=== PATIENT | female | born 1940 | race Caucasian/White ===

== ENCOUNTER 2017-08-04 15:58 | Inpatient (IN) | payer MEDICARE, OTHER ==
[~2017-08-04] VITALS: Ht 160 cm; Wt 65.0 kg
[~2017-08-04 15:58] MED LIST: ALBU17I INH; LEVA500T PO
[2017-08-04 16:09] VITALS: BP 153/63; PULSE 60; RESP 17; TEMP 97.7; O2SAT 88
[2017-08-04 16:13] VITALS: O2SAT 97
[2017-08-04] MEDS ORDERED: ONDANSETRON HCL 4 MG/2 ML VIAL IVP ONE (16:15)
[2017-08-04] MEDS ORDERED: SODIUM CHLORIDE 0.9% FLUSH 10 ML FLUSH IVF PRN (16:15)
--- NOTE | 2017-08-04 16:32 | PD ---
HPI Chief Complaint: Cardiac Complaint Time Seen by Provider: 16:10 Travel History International Travel<30 days: No Contact w/Intl Traveler<30days: No History of Present Illness HPI 77-year-old female presents via EMS for evaluation of dizziness, nausea and vomiting. Symptoms started at 2 PM after she ate food at [employer] shortly thereafter she developed a vertigo sensation, nausea and vomiting. She reports that she has had several episodes of emesis since then. She reports a heaviness in her head. Symptoms are moderate, no aggravating or relieving factors. She denies chest pain, shortness of breath, blurred vision, weakness, facial droop, aphasia, diarrhea or constipation, abdominal pain. She has no other complaints at this time. PFSH Past Medical History Arthritis: Yes Autoimmune Disease: No Cancer: No Cardiovascular Problems: No Chemotherapy: No Diabetes: No Diminished Hearing: No Genitourinary: No Musculoskeletal: Yes (weakness right upper extremity) Psychiatric: No Reproductive: No Radiation Therapy: No Sickle Cell Disease: No Thyroid Disease: No Menopausal: Yes Past Surgical History Eye Surgery: Yes (CATARACTS SURGERY) Neurologic Surgery: Yes (TUMOR RESECTION) Pacemaker: No Social History Alcohol Use: Yes (SOCIALLY) Tobacco Use: No Substance Use: No Allergies-Medications (Allergen,Severity, Reaction): Coded Allergies: No Known Allergies (Verified , 10/01/13) Reported Meds & Prescriptions Reported Meds & Active Scripts Active Reported Acetaminophen Pm Caplet (Acetaminophen/Diphenhydramine) 500 Mg-25 Mg Tablet 1 Tab PO HS Calcium (Oyster Shell) Unknown Strength Tab 1 Tab PO DAILY Iron (Ferrous Sulfate) Unknown Strength Tab 1 Tab PO DAILY Preservision Areds (Multiple Vitamins W/ Minerals) 1 Tab 1 Tab PO DAILY Actonel (Risedronate) 150 Mg Tab 150 Mg PO MONTHLY Celebrex (Celecoxib) 200 Mg Cap 200 Mg PO DAILY Review of Systems Except as stated in HPI: all other systems reviewed are Neg Physical Exam Narrative GENERAL: Well-developed well-nourished female who is vomiting on initial examination. SKIN: Warm and dry. HEAD: Atraumatic. Normocephalic. EYES: Pupils equal and round reactive to light, horizontal nystagmus. No scleral icterus. No injection or drainage. ENT: No nasal bleeding or discharge. Mucous membranes pink and moist. NECK: Trachea midline. No JVD. CARDIOVASCULAR: Regular rate and rhythm. No murmur appreciated. RESPIRATORY: No accessory muscle use. Clear to auscultation. Breath sounds equal bilaterally. GASTROINTESTINAL: Abdomen soft, non-tender, nondistended. Hepatic and splenic margins not palpable. MUSCULOSKELETAL: No obvious deformities. No clubbing. No cyanosis. No edema. NEUROLOGICAL: Awake and alert. No obvious cranial nerve deficits. Motor grossly within normal limits. Normal speech. Horizontal nystagmus noted. Normal finger to nose. Some ataxia with [id number] bilaterally. No upper or lower extremity drift. PSYCHIATRIC: Appropriate mood and affect; insight and judgment normal. Data Data Last Documented VS Vital Signs Date Time Temp Pulse Resp B/P (MAP) Pulse Ox O2 Delivery O2 Flow Rate FiO2 08/04/17 16:13 (93) 97 Nasal Cannula 4.00 08/04/17 16:09 97.7 60 17 Orders Orders Electrocardiogram (08/04/17 16:12) Complete Blood Count With Diff (08/04/17 16:12) Comprehensive Metabolic Panel (08/04/17 16:12) Magnesium (Mg) (08/04/17 16:12) Ckmb (Isoenzyme) Profile (08/04/17 16:12) Troponin I (08/04/17 16:12) Act Partial Throm Time (Ptt) (08/04/17 16:12) Prothrombin Time / Inr (Pt) (08/04/17 16:12) Chest, Single Ap (08/04/17 16:12) Ct Brain W/O Iv Contrast(Rout) (08/04/17 16:12) Ecg Monitoring (08/04/17 16:12) Iv Access Insert/Monitor (08/04/17 16:12) Oximetry (08/04/17 16:12) Ondansetron Inj (Zofran Inj) (08/04/17 16:15) Sodium Chloride 0.9% Flush (Ns Flush) (08/04/17 16:15) Mra Brain W/O Contrast (Cow) (08/04/17 ) Mri Brain W&W/O Contrast (08/04/17 ) Gadodiamide Pf Inj (Omniscan Pf Inj) (08/04/17 17:41) Meclizine (Antivert) (08/04/17 18:15) Consult Neurology (08/04/17 ) Morphine Inj (Morphine Inj) (08/04/17 18:45) (Hub Use Only)Inp Phy Cons/Ref (08/04/17 ) Admit Order (Ed Use Only) (08/04/17 18:41) Labs Laboratory Tests Test 08/04/17 16:20 White Blood Count 5.1 TH/MM3 Red Blood Count 3.99 MIL/MM3 Hemoglobin 13.1 GM/DL Hematocrit 37.5 % Mean Corpuscular Volume 93.9 FL Mean Corpuscular Hemoglobin 32.9 PG Mean Corpuscular Hemoglobin Concent 35.1 % Red Cell Distribution Width 12.9 % Platelet Count 230 TH/MM3 Mean Platelet Volume 8.3 FL Neutrophils (%) (Auto) 47.5 % Lymphocytes (%) (Auto) 41.6 % Monocytes (%) (Auto) 7.9 % Eosinophils (%) (Auto) 2.2 % Basophils (%) (Auto) 0.8 % Neutrophils # (Auto) 2.4 TH/MM3 Lymphocytes # (Auto) 2.1 TH/MM3 Monocytes # (Auto) 0.4 TH/MM3 Eosinophils # (Auto) 0.1 TH/MM3 Basophils # (Auto) 0.0 TH/MM3 CBC Comment DIFF FINAL Differential Comment Prothrombin Time 10.6 SEC Prothromb Time International Ratio 1.0 RATIO Activated Partial Thromboplast Time 24.0 SEC Blood Urea Nitrogen 13 MG/DL Creatinine 0.70 MG/DL Random Glucose 104 MG/DL Total Protein 7.0 GM/DL Albumin 3.6 GM/DL Calcium Level 10.0 MG/DL Magnesium Level 2.0 MG/DL Alkaline Phosphatase 56 U/L Aspartate Amino Transf (AST/SGOT) 10 U/L Alanine Aminotransferase (ALT/SGPT) 15 U/L Total Bilirubin 0.3 MG/DL Sodium Level 139 MEQ/L Potassium Level 3.5 MEQ/L Chloride Level 103 MEQ/L Carbon Dioxide Level 28.7 MEQ/L Anion Gap 7 MEQ/L Estimat Glomerular Filtration Rate 81 ML/MIN Total Creatine Kinase 66 U/L Troponin I LESS THAN 0.02 NG/ML MDM Medical Decision Making Medical Screen Exam Complete: Yes Emergency Medical Condition: Yes Medical Record Reviewed: Yes Differential Diagnosis Cerebellar CVA, peripheral vertigo, intracranial hemorrhage, electrolyte abnormality, arrhythmia, gastroenteritis Narrative Course The patient was placed on ECG monitoring pulse oximetry. A 12-lead EKG was obtained revealing a left bundle branch block. Discussed with my attending, Lab work, CT of the brain MRI, MRA of the brain is been ordered. The patient was given Zofran. IV fluids from EMS are currently running. The patient was given meclizine. Lab work has been reviewed. MRI of the brain reveals: CONCLUSION: 1. Findings suggest a focal subacute infarction involving the left cerebral cortex high along the left cerebral vertex. 2. SWI images demonstrate micro-hemorrhage within the left cortex at the level of the restricted diffusion. I discussed with the on-call neurologist Dr. Blevins who would like the patient to be admitted and he will consult. Discussed with Dr. Colon who is agreeable with admission. Diagnosis Primary Impression: CVA (cerebral vascular accident) Additional Impression: Vertigo Admitting Information Admitting Physician Requests: Admit Vazquez Danielson Aug 04, 2017 16:31
[2017-08-04 16:34] LABS: AUTOMATED NEUTROPHIL # 2.4 TH/MM3 (1.8-7.7); BASOPHIL % 0.8 % (0.0-2.0); EOSINOPHIL # 0.1 TH/MM3 (0-0.4); EOSINOPHIL % 2.2 % (0.0-4.0); HEMATOCRIT 37.5 % (35.0-46.0); HEMOGLOBIN 13.1 GM/DL (11.6-15.3); LYMPH % 41.6 % (9.0-44.0); LYMPHOCYTE # 2.1 TH/MM3 (1.0-4.8); MEAN CELL VOLUME 93.9 FL (80.0-100.0); MEAN CORPUSCULAR HEMOGLOBIN 32.9 PG (27.0-34.0); MEAN CORPUSCULAR HGB CONC 35.1 % (32.0-36.0); MEAN PLATELET VOLUME 8.3 FL (7.0-11.0); MONO % 7.9 % (0.0-8.0); MONOCYTE # 0.4 TH/MM3 (0-0.9); NEUT % 47.5 % (16.0-70.0); PLATELET COUNT 230 TH/MM3 (150-450); RED BLOOD COUNT 3.99 MIL/MM3 (4.00-5.30); RED CELL DISTRIBUTION WIDTH 12.9 % (11.6-17.2); WHITE BLOOD COUNT 5.1 TH/MM3 (4.0-11.0)
[2017-08-04 16:50] LABS: ALBUMIN 3.6 GM/DL (3.4-5.0); AST (GOT) 10 U/L (15-37); BICARBONATE 28.7 MEQ/L (21.0-32.0); BLOOD UREA NITROGEN 13 MG/DL (7-18); CHLORIDE 103 MEQ/L (98-107); GLOMERULAR FILTRATION RATE 81 ML/MIN (>89); GLUCOSE,RANDOM 104 MG/DL (74-106); SODIUM (NA) 139 MEQ/L (136-145)
[2017-08-04 16:52] LABS: PROTHROMBIN TIME - PATIENT 10.6 SEC (9.8-11.6)
[2017-08-04 16:55] LABS: ALKALINE PHOSPHATASE 56 U/L (45-117); ALT (GPT) 15 U/L (10-53); TOTAL BILIRUBIN ADULT 0.3 MG/DL (0.2-1.0); TROPONIN I LESS THAN 0.02 NG/ML (0.02-0.05)
[2017-08-04] MEDS ORDERED: OCUVTAB4 PO (17:03)
[2017-08-04] MEDS ORDERED: ACTO150T PO (17:03)
[2017-08-04] MEDS ORDERED: IRON18TA PO (17:03)
[2017-08-04] MEDS ORDERED: CELE200C PO (17:03)
[2017-08-04] MEDS ORDERED: DIPH25TA31 PO (17:06)
[2017-08-04] MEDS ORDERED: CALC12502 PO (17:06)
--- NOTE | 2017-08-04 17:19 | RADRPT ---
EXAM DATE/TIME: 08/04/2017 16:20 [facility] COMPARISON: CHEST SINGLE AP, October 01, 2013, 8:07. INDICATIONS : Heart palpitations, dizziness, vomtting, and shortness of breath. MEDICAL HISTORY : None. SURGICAL HISTORY : None. ENCOUNTER: Initial ACUITY: 1 day PAIN SCORE: 0/10 LOCATION: Bilateral chest FINDINGS: Patchy linear parenchymal opacities in the left lower lung zone. Cardiomediastinal contours are stabl e. Bony thorax is intact. CONCLUSION: 1. Linear parenchymal opacities in the left lower lung zone, presumably atelectasis/scarring. Jeronimo Martel MD on August 04, 2017 at 17:16 Board Certified Radiologist. This report was verified electronically.
--- NOTE | 2017-08-04 17:27 | RADRPT ---
EXAM DATE/TIME: 08/04/2017 17:05 [facility] COMPARISON: CT BRAIN W/O CONTRAST, January 07, 2013, 6:14. INDICATIONS : History of brain tumor,sudden onset of headache,weakness,dizziness RADIATION DOSE: 35.10 CTDIvol (mGy) MEDICAL HISTORY : Brain tumor SURGICAL HISTORY : Craniotomy. ENCOUNTER: Initial ACUITY: 1 day PAIN SCALE: 5/10 LOCATION: cranial TECHNIQUE: Multiple contiguous axial images were obtained of the head. Using automated exposure control and adj ustment of the mA and/or kV according to patient size, radiation dose was kept as low as reasonably a chievable to obtain optimal diagnostic quality images. DICOM format image data is available electro nically for review and comparison. FINDINGS: Noncontrast axial head CT demonstrates the ventricles to be normal in size and configuration with a n ormal sulcal pattern. No acute intracranial hemorrhage, acute cortical infarction, mass or midline sh ift is seen. Posterior fossa structures are unremarkable. Bone windows are unremarkable. There is previous left frontal craniotomy but no underlying mass is id entified. There is minimal encephalomalacia in the left frontal region. CONCLUSION: 1. No evidence of acute intracranial pathology. No masses are identified. Austin Alcantara MD on August 04, 2017 at 17:24 Board Certified Radiologist. This report was verified electronically.
[2017-08-04] MEDS ORDERED: GADODIAMIDE PF 287 MG/ML 5 ML VIAL (for RAD MRI) IV PUSH ONE (17:41)
--- NOTE | 2017-08-04 17:57 | RADRPT ---
EXAM DATE/TIME: 08/04/2017 17:18 [facility] COMPARISON: MRI BRAIN W & W/O CONTRAST, August 04, 2017, 17:18. INDICATIONS : CVA. MEDICAL HISTORY : Arthritis. SURGICAL HISTORY : Craniotomy. ENCOUNTER: Subsequent ACUITY: 1 day PAIN SCORE: Nonresponsive. LOCATION: cranial Please note a normal MRA of the brain does not entirely exclude the possibility of a small aneurysm, nor the possibility of distal intracranial vessel disease. TECHNIQUE: 3D time of flight MRA was performed. Source images, multiplanar STS MIP, and 3D volume MIP reconstru ctions were reviewed. FINDINGS: There is excellent visualization of the major intracranial arteries out to the second-order branch ve ssels. There is no evidence for aneurysm, vessel truncation or stenosis, and no evidence for vascula r malformation. CONCLUSION: Normal examination. Juan Pablo Madrid MD on August 04, 2017 at 17:53 Board Certified Radiologist. This report was verified electronically.
[2017-08-04] MEDS ORDERED: MECLIZINE HCL 25 MG TAB PO ONE (18:15)
--- NOTE | 2017-08-04 18:15 | RADRPT ---
EXAM DATE/TIME: 08/04/2017 17:18 This report includes an Addendum and supersedes previous reports for this exam. [facility] COMPARISON: CT BRAIN W/O CONTRAST, August 04, 2017, 17:05. INDICATIONS : CVA. CONTRAST: 14 cc Omniscan (gadodiamide) IV MEDICAL HISTORY : Arthritis. SURGICAL HISTORY : Craniotomy. Brain tumor resection. ENCOUNTER: Subsequent ACUITY: 1 day PAIN SCORE: Nonresponsive. LOCATION: cranial TECHNIQUE: Multiplanar, multisequence MRI of the brain was performed both prior to and following the administrat ion of paramagnetic contrast. FINDINGS: CEREBRUM: The ventricles are normal for age. There is bilateral cortical atrophy. No evidence of midline shift, mass lesion. However, the diffusion weighted images demonstrate increased signal high along the left cerebral cortex consisting with an acute to subacute infarct. There is some gyral enhancement in the postcontrast images in this location. The SWI images suggest some microhemorrhage within the cortex. No extraaxial fluid collections are seen. The pituitary gland and suprasellar cistern are normal in configuration. WHITE MATTER: A few high signal spots are seen in the white matter tracts bilaterally characteristic of ischemic de myelination. POSTERIOR FOSSA: The cerebellum and brainstem are intact. The 4th ventricle is midline. The cerebellopontine angle is unremarkable. The cerebellar tonsils are normal in position. DIFFUSION IMAGING: Focal area of increased signal involving the cortex high along the left cerebral vertex. EXTRACRANIAL: The visualized portions of the orbits and paranasal sinuses are unremarkable. POST-CONTRAST: There is some gyral enhancement high along the left cerebral vertex in the region of the area restric andrez diffusion. CONCLUSION: 1. Findings suggest a focal subacute infarction involving the left cerebral cortex high along the lef t cerebral vertex. 2. SWI images demonstrate micro-hemorrhage within the left cortex at the level of the restricted diff usion. Jeremias Ochoa MD on August 04, 2017 at 18:05 Board Certified Radiologist. This report was verified electronically. ADDENDUM: COMPARISON: MRI BRAIN W & W/O CONTRAST, January 18, 2013, 12:22. The case was discussed with the medical service. This patient has had a previous meningioma removed f rom the left posterior parietal cortex. As such, the signal identified on the diffusion restricted im ages likely represents an area of gliosis. The decreased signal in this area on the SWI images repres ents old postoperative change and old hemorrhage as well. The MRI dated 01/18/13 is now available for direct comparison. There is significant interval improvement in the appearance of this area when comp ared to the prior study. Joao Pineda MD on August 06, 2017 at 8:21 Board Certified Radiologist. This report was verified electronically.
[2017-08-04] MEDS ORDERED: DEXTROSE 50% IN WATER 50 ML VIAL(D50) IV PUSH PRN (18:45)
[2017-08-04] MEDS ORDERED: GLUCAGON 1 MG/ML VIAL OTHER PRN (18:45)
[2017-08-04] MEDS ORDERED: MORPHINE SULFATE 2 MG/ML INJ IV PUSH ONE (18:45)
[2017-08-04] MEDS ORDERED: SODIUM CHLORIDE 0.9% FLUSH 10 ML FLUSH IV FLUSH PRN (18:45)
[2017-08-04 20:01] VITALS: BP 155/69
[2017-08-04 20:38] VITALS: BP 127/60; PULSE 57; RESP 16; TEMP 97.8; O2SAT 97
--- NOTE | 2017-08-04 20:46 | HHI.HP ---
[facility] Unknown Admission Diagnosis CVA, vertigo Diagnoses: Travel History International Travel<30 Days: No Contact w/Intl Traveler <30 Da: No History of Present Illness 77-year-old female with a past medical history significant for osteoarthritis and osteoporosis presents the emergency department for evaluation of dizziness. The patient reports she just finished eating lunch when she stood up and was extremely dizzy. She sat back down and was overcome with nausea/vomiting and accompanying diaphoresis. She reports that she had a severe headache that persists. She denies any chest pain or shortness of breath. Denies any weakness or lateralizing signs/symptoms. Denies any dysarthria or word finding difficulties. Review of Systems Except as stated in HPI: all other systems reviewed are Neg Past Family Social History Past Medical History Osteoarthritis Osteoporosis History of benign brain tumor Past Surgical History Brain tumor removal Tonsillectomy Reported Medications Reported Meds & Active Scripts Active Reported Acetaminophen Pm Caplet (Acetaminophen/Diphenhydramine) 500 Mg-25 Mg Tablet 1 Tab PO HS Calcium (Oyster Shell) Unknown Strength Tab 1 Tab PO DAILY Iron (Ferrous Sulfate) Unknown Strength Tab 1 Tab PO DAILY Preservision Areds (Multiple Vitamins W/ Minerals) 1 Tab 1 Tab PO DAILY Actonel (Risedronate) 150 Mg Tab 150 Mg PO MONTHLY Celebrex (Celecoxib) 200 Mg Cap 200 Mg PO DAILY Allergies: Coded Allergies: No Known Allergies (Verified , 10/01/13) Family History Dad with CAD. Mom with DM. Social History Quit tobacco 30 years ago. Drinks approximately 1 glass of wine daily. Denies illicit drugs. Physical Exam Vital Signs Vital Signs Date Time Temp Pulse Resp B/P (MAP) Pulse Ox O2 Delivery O2 Flow Rate FiO2 08/04/17 20:38 97.8 57 16 127/60 (82) 97 08/04/17 20:01 62 16 155/69 (97) 100 08/04/17 19:59 Nasal Cannula 2.00 08/04/17 16:13 (93) 97 Nasal Cannula 4.00 08/04/17 16:09 97.7 60 17 153/63 (93) 88 Room Air 26/18 16:06 58 15 94 Room Air Physical Exam GENERAL: female lying in bed SKIN: No rashes, ecchymoses or lesions. Cool and dry. HEAD: Atraumatic. Normocephalic. No temporal or scalp tenderness. EYES: Pupils equal round and reactive. Extraocular motions intact. No scleral icterus. No injection or drainage. ENT: Nose without bleeding, purulent drainage or septal hematoma. Throat without erythema, tonsillar hypertrophy or exudate. Uvula midline. Airway patent. NECK: Trachea midline. No JVD or lymphadenopathy. Supple, nontender, no meningeal signs. CARDIOVASCULAR: Regular rate and rhythm without murmurs, gallops, or rubs. RESPIRATORY: Clear to auscultation. Breath sounds equal bilaterally. No wheezes , rales, or rhonchi. GASTROINTESTINAL: Abdomen soft, non-tender, nondistended. No hepato-splenomegaly , or palpable masses. No guarding. MUSCULOSKELETAL: Extremities without clubbing, cyanosis, or edema. No joint tenderness, effusion, or edema noted. No calf tenderness. Negative Homans sign bilaterally. NEUROLOGICAL: Awake and alert. Cranial nerves II through XII intact. Motor and sensory within normal limits. Five out of 5 muscle strength in all muscle groups. Normal speech. Laboratory Laboratory Tests Test 08/04/17 16:20 White Blood Count 5.1 Red Blood Count 3.99 Hemoglobin 13.1 Hematocrit 37.5 Mean Corpuscular Volume 93.9 Mean Corpuscular Hemoglobin 32.9 Mean Corpuscular Hemoglobin Concent 35.1 Red Cell Distribution Width 12.9 Platelet Count 230 Mean Platelet Volume 8.3 Neutrophils (%) (Auto) 47.5 Lymphocytes (%) (Auto) 41.6 Monocytes (%) (Auto) 7.9 Eosinophils (%) (Auto) 2.2 Basophils (%) (Auto) 0.8 Neutrophils # (Auto) 2.4 Lymphocytes # (Auto) 2.1 Monocytes # (Auto) 0.4 Eosinophils # (Auto) 0.1 Basophils # (Auto) 0.0 CBC Comment DIFF FINAL Differential Comment Prothrombin Time 10.6 Prothromb Time International Ratio 1.0 Activated Partial Thromboplast Time 24.0 Blood Urea Nitrogen 13 Creatinine 0.70 Random Glucose 104 Total Protein 7.0 Albumin 3.6 Calcium Level 10.0 Magnesium Level 2.0 Alkaline Phosphatase 56 Aspartate Amino Transf (AST/SGOT) 10 Alanine Aminotransferase (ALT/SGPT) 15 Total Bilirubin 0.3 Sodium Level 139 Potassium Level 3.5 Chloride Level 103 Carbon Dioxide Level 28.7 Anion Gap 7 Estimat Glomerular Filtration Rate 81 Total Creatine Kinase 66 Troponin I LESS THAN 0.02 Result Diagram: 08/04/17 1620 08/04/17 1620 Caprini VTE Risk Assessment Caprini VTE Risk Assessment: Mod/High Risk (score >= 2) Caprini Risk Assessment Model Point Value = 1 Point Value = 2 Point Value = 3 Point Value = 5 Age 41-60 Minor surgery BMI > 25 kg/m2 Swollen legs Varicose veins or History of unexplained or recurrent spontaneous Oral contraceptives or hormone replacement Sepsis (< 1 month) Serious lung disease, including pneumonia (< 1 month) Abnormal pulmonary function Acute myocardial infarction Congestive heart failure (< 1 month) History of inflammatory bowel disease Medical patient at bed rest Age 61-74 Arthroscopic surgery Major open surgery (> 45 min) Laparoscopic surgery (> 45 min) Malignancy Confined to bed (> 72 hours) Immobilizing plaster cast Central venous access Age >= 75 History of VTE Family history of VTE Factor V Leiden Prothrombin [id number] Lupus anticoagulant Anticardiolipin antibodies Elevated serum homocysteine Heparin-induced thrombocytopenia Other congenital or acquired thrombophilia Stroke (< 1 month) Elective arthroplasty Hip, pelvis, or leg fracture Acute spinal cord injury (< 1 month) Prophylaxis Regimen Total Risk Factor Score Risk Level Prophylaxis Regimen 0-1 Low Early ambulation 2 Moderate Order ONE of the following: *Sequential Compression Device (SCD) *Heparin 5000 units SQ BID 3-4 Higher Order ONE of the following medications: *Heparin 5000 units SQ TID *Enoxaparin/Lovenox 40 mg SQ daily (WT < 150 kg, CrCl > 30 mL/min) *Enoxaparin/Lovenox 30 mg SQ daily (WT < 150 kg, CrCl > 10-29 mL/min) *Enoxaparin/Lovenox 30 mg SQ BID (WT < 150 kg, CrCl > 30 mL/min) AND/OR *Sequential Compression Device (SCD) 5 or more Highest Order ONE of the following medications: *Heparin 5000 units SQ TID (Preferred with Epidurals) *Enoxaparin/Lovenox 40 mg SQ daily (WT < 150 kg, CrCl > 30 mL/min) *Enoxaparin/Lovenox 30 mg SQ daily (WT < 150 kg, CrCl > 10-29 mL/min) *Enoxaparin/Lovenox 30 mg SQ BID (WT < 150 kg, CrCl > 30 mL/min) AND *Sequential Compression Device (SCD) Assessment and Plan Assessment and Plan Assessment/plan: 1. CVA Brain MRI significant for a focal subacute infarction involving the left cerebral cortex with microhemorrhage Head MRA within normal limits Neurology consulted, appreciate recommendations Bed rest, swallow eval, SCDs, director independent for signs of evolving hemorrhage 2. Osteoarthritis Holding home Celebrex FEN Nothing by mouth NS at 70 cc/hour Electrolytes: Monitor and replete prn SCDs Physician Certification 2 Midnight Certification Type: Admission for Inpatient Services Order for Inpatient Services The services are ordered in accordance with Medicare regulations or non- Medicare payer requirements, as applicable. In the case of services not specified as inpatient-only, they are appropriately provided as inpatient services in accordance with the 2-midnight benchmark. Estimated LOS (days): 2 2 days is the estimated time the patient will need to remain in the hospital, assuming treatment plan goals are met and no additional complications. Post-Hospital Plan: Not yet determined Lily Iraheta MD Aug 04, 2017 20:46
[2017-08-04] MEDS ORDERED: ACETAMINOPHEN 325 MG TAB PO PRN (21:15)
[2017-08-04] MEDS ORDERED: MORPHINE SULFATE 2 MG/ML INJ IV PUSH PRN (21:15)
[2017-08-04] MEDS: SODIUM CHLORIDE 0.9% FLUSH 10 ML FLUSH IV FLUSH SCH (22:09)
[2017-08-04] MEDS: SODIUM CHLOR 0.9% 1000 ML INJ 1,000 ML IV SCH (22:09)
[2017-08-04 22:38] LABS: HEMOGLOBIN A1C 5.8 % (4.3-6.0)
[2017-08-04 23:58] VITALS: PULSE 66
[2017-08-05] VITALS (9 sets, daily range): BP systolic 99–129; BP diastolic 54–61; PULSE 53–69; RESP 18–20; TEMP 98–98.4; O2SAT 92–97
[2017-08-05 06:16] LABS: CHOLESTEROL/ HDL RATIO 2.34 RATIO; HDL CHOLESTEROL 87.1 MG/DL (40.0-60.0)
[2017-08-05] MEDS: SODIUM CHLORIDE 0.9% FLUSH 10 ML FLUSH IV FLUSH SCH ×2 (09:00→21:00)
--- NOTE | 2017-08-05 09:32 | MB ---
cc: FELECIA PEARSON M.D. DATE OF CONSULTATION: 08/05/2017 HISTORY OF PRESENT ILLNESS A 77-year-old right-handed woman, very healthy, except she had a left meningioma [place] [address] Javed and she did have a scan about 6 months after that at [facility] which we will try to obtain. Nevertheless, she was at lunch yesterday and stood up after eating and had sudden onset of vertigo with nausea, vomiting, lasted about 10 minutes. She had a headache afterwards in the back of her head and came into the hospital. She never had vertigo before. No asymmetrical weakness or numbness or double vision associated with it, nor fever. She has not been sick. REVIEW OF SYSTEMS Denies any hypertension, diabetes, hypercholesterolemia, LA, CABG, cardiac arrhythmia, stent, angioplasty, atrial fibrillation, Coumadin, renal, hepatic or pulmonary disease, thyroid disease, lupus, ulcer, cancer, seizure or stroke. SOCIAL HISTORY Nonsmoker. Has one drink a day. Lives with herself. FAMILY HISTORY Cancer in her sister. Negative for seizure or stroke. MEDICATION She does not take an aspirin a day. She takes: 1. Acetaminophen. 2. Calcium. 3. Iron. 4. Actonel. 5. Celebrex. ALLERGIES NO KNOWN DRUG ALLERGIES. PAST MEDICAL HISTORY Just some chronic back pain from arthritis. PHYSICAL EXAMINATION VITAL SIGNS: Afebrile, 83, 18, 113/56. NECK: There were no carotid or vertebral bruits. HEART: Regular rhythm. I do not detect a murmur. NEURO: Pupils are equal. Visual jolley are full. Extraocular movements intact without nystagmus. Face symmetric with normal sensation. Tongue was midline. There is no drift. She had normal strength in upper and lower extremities bilaterally. DTRs are trace throughout. Toes are downgoing bilaterally. Pinprick is intact throughout. She is not ataxic on [id number] or toe to finger. Gait is steady. Speech is fluent. She is not aphasic. LABORATORY DATA CBC is normal. Basic metabolic profile was normal. Calcium normal. LFTs, CPK, troponin normal. LDL cholesterol was 107. Coags normal. MRI of the brain shows what probably is old changes from an area of the postsurgical region on the left parietal and no brain diffusion abnormalities noted. The mastoids were clear. No posterior circulation abnormalities were noted. Preop there was a 4.6 cm left parietal meningioma containing calcification, so it was rather large. EKG shows sinus rhythm. MRA of the [id number] was normal. IMPRESSION I think this vertigo, probably more of a peripheral vestibulopathy, although a TIA is a consideration and I would start her on a baby aspirin. In addition, we will check an MRA of the neck to make sure there is no vertebrobasilar stenosis, and an echo and a Holter. If the echo looks good and the MRA looks fine, she could be considered for discharge. A statin could be considered with the elevated LDL. Will review the films from [facility] that were postop from 2012. Will need to have those pulled up as they need to be reconstituted in order to compare the current scan, but I do not think this is a new left parietal infarct, I think these left parietal changes are probably chronic and not related to her current symptoms. MD ONEAL Knox/SHAHRAM /8:37 AM /8:59 AM
[2017-08-05] MEDS: ASPIRIN EC 81 MG TABEC PO SCH (12:34)
[2017-08-05] MEDS: SODIUM CHLOR 0.9% 1000 ML INJ 1,000 ML IV SCH (12:35)
--- NOTE | 2017-08-05 12:58 | EKG ---
Date Performed: 08/04/2017 Time Performed: 16:03:14 PTAGE: 77 years EKG: Sinus rhythm MARKED LEFT AXIS DEVIATION LEFT BUNDLE BRANCH BLOCK ABNORMAL ECG INTERPRETATION BASED ON A DEFAULT A GE OF 40 YEARS NO PREVIOUS TRACING DOCTOR: Sung Moore Interpretating Date/Time 08/05/2017 12:51:05
--- NOTE | 2017-08-05 13:06 | RADRPT ---
EXAM DATE/TIME: 08/05/2017 12:08 [place] COMPARISON: No previous studies available for comparison. INDICATIONS : Stenosis. Dizziness. CVA. CONTRAST: 20 cc Omniscan (gadodiamide) IV MEDICAL HISTORY : Arthritis. SURGICAL HISTORY : Craniotomy. ENCOUNTER: Subsequent ACUITY: 2 day PAIN SCORE: 0/10 LOCATION: neck. Percent stenosis is calculated using the diameter of the stenotic region over the diameter of the nor mal distal internal carotid artery. TECHNIQUE: Bolus infused MRA of the extracranial circulation was performed using a neurovascular coil. Post pro cessing was performed including rotating subvolume maximum intensity projections of each carotid dee ry, rotating full volume maximum intensity projections of both carotid arteries, sagittal and coronal sliding thin slab reformations of each carotid artery, and left oblique sliding thin slab reformatio n through the aortic arch to include the origin of the arch branch vessels. FINDINGS: AORTIC ARCH: There is a three vessel origin of the great vessels from the aorta. No evidence of ostial narrowing. RIGHT CAROTID: The common carotid artery is intact. The carotid bulb has a normal configuration without ulceration or narrowing. The internal carotid artery lumen is smooth without stenosis. Fairly pronounced tortuo sity noted. The external carotid artery is intact. LEFT CAROTID: The common carotid artery is intact. The carotid bulb has a normal configuration without ulceration or narrowing. The internal carotid artery lumen is smooth without stenosis. Fairly prominent tortuos ity noted. The external carotid artery is intact. VERTEBRALS: The vertebral arteries have a symmetric diameter. No stenotic lesions are seen. CONCLUSION: No evidence of carotid stenosis Juan Pablo Madrid MD on August 05, 2017 at 13:02 Board Certified Radiologist. This report was verified electronically.
[2017-08-05] MEDS ORDERED: GADODIAMIDE PF 287 MG/ML 20 ML VIAL (for RAD MRI) IVCONTRAST ONE (13:21)
--- NOTE | 2017-08-05 17:47 | HHI.PR ---
Subjective Remarks Follow up for acute stroke, vertigo. Patient is currently doing well. No further vertigo symptoms. No CP, SOB, fever, chills. Objective Vitals Vital Signs Date Time Temp Pulse Resp B/P (MAP) Pulse Ox O2 Delivery O2 Flow Rate FiO2 08/05/17 16:25 98.3 58 18 129/61 (83) 92 08/05/17 16:03 98.4 58 20 115/58 (77) 94 08/05/17 11:23 98.1 69 20 99/54 (69) 93 08/05/17 09:00 58 08/05/17 07:30 97 Nasal Cannula 2.00 08/05/17 07:21 98.4 53 18 113/56 (75) 96 08/05/17 06:12 Nasal Cannula 2.00 08/05/17 03:35 60 08/05/17 02:47 98.0 61 18 106/55 (72) 95 08/04/17 23:58 66 08/04/17 23:19 18 08/04/17 20:38 97.8 57 16 127/60 (82) 97 08/04/17 20:01 62 16 155/69 (97) 100 08/04/17 19:59 Nasal Cannula 2.00 I/O 08/04/17 08/04/17 08/04/17 08/05/17 08/05/17 08/05/17 07:00 15:00 23:00 07:00 15:00 23:00 Intake Total 240 ml Balance 240 ml Intake Oral 240 ml # Voids 1 2 Result Diagram: 08/04/17 1620 08/04/17 1620 Imaging Last Impressions Neck Magnetic Resonance Angiography 08/05/17 0844 Signed Impressions: Service Date/Time: Saturday, August 05, 2017 12:08 - CONCLUSION: No evidence of carotid stenosis Juan Pablo Madrid MD Head CT 08/04/17 161 Signed Impressions: Service Date/Time: Friday, August 04, 2017 17:05 - CONCLUSION: 1. No evidence of acute intracranial pathology. No masses are identified. Austin Alcantara MD Chest X-Ray 08/04/17 1612 Signed Impressions: Service Date/Time: Friday, August 04, 2017 16:20 - CONCLUSION: 1. Linear parenchymal opacities in the left lower lung zone, presumably atelectasis/scarring. Jeronimo Martel MD Head Magnetic Resonance Angiography 08/04/17 0000 Signed Impressions: Service Date/Time: Friday, August 04, 2017 17:18 - CONCLUSION: Normal examination. Juan Pablo Madrid MD Brain MRI 08/04/17 0000 Signed Impressions: Service Date/Time: Friday, August 04, 2017 17:18 - CONCLUSION: 1. Findings suggest a focal subacute infarction involving the left cerebral cortex high along the left cerebral vertex. 2. SWI images demonstrate micro-hemorrhage within the left cortex at the level of the restricted diffusion. Jeremias Ochoa MD Objective Remarks GENERAL: AOX3, NAD. SKIN: Warm and dry. HEAD: Normocephalic. EYES: No scleral icterus. No injection or drainage. NECK: Supple, trachea midline. No JVD or lymphadenopathy. CARDIOVASCULAR: Regular rate and rhythm without murmurs, gallops, or rubs. RESPIRATORY: Breath sounds equal bilaterally. No accessory muscle use. GASTROINTESTINAL: Abdomen soft, non-tender, nondistended. MUSCULOSKELETAL: No cyanosis, or edema. BACK: Nontender without obvious deformity. No CVA tenderness. Procedures None. A/P Problem List: (1) CVA (cerebral vascular accident) ICD Code: I63.9 - Cerebral infarction, unspecified Status: Acute (2) Vertigo ICD Code: R42 - Dizziness and giddiness Status: Acute Assessment and Plan Ms. Maurice is a 77-year-old female with a past medical history significant for osteoarthritis and osteoporosis presents the emergency department for evaluation of dizziness. She did not have any focal weakness, dysarthria. - Subacute left cerebral infarction - Left cortex micro-hemorrhage - Patient is currently on Aspirin. Neurology following - May benefit from Plavix instead of Aspirin. - Will get PT/OT eval. - Dyslipidemia - Will start patient on Lipitor 40mg QHS. - Vertigo - no further symptoms. Received one dose of Meclizine on 08/04/2017. Full code. SCDs. Telemetry. Discharge plan: Probable discharge on 08/06/[address]. Macarena Lane DO Aug 05, 2017 17:47
--- NOTE | 2017-08-05 19:00 | ECHRPT ---
Indication: CONCLUSIONS The left ventricular systolic function is low normal with an estimated ejection fraction in the rang e of 50%. Mild concentric left ventricular hypertrophy. Doppler parameters are consistent with impaired left ventricular relaxtion (grade 1 diastolic dysfun ction). Mild aortic valve regurgitation. There is mild tricuspid valve regurgitation. Mild pulmonary valve regurgitation. BP: 113 / 65 HR: 75 Rhythm: MEASUREMENTS (Male / Female) Normal Values Technical Quality: 2D ECHO LV Diastolic Diameter PLAX 4.0 cm 4.2 - 5.9 / 3.9 - 5.3 cm LV Systolic Diameter PLAX 3.0 cm IVS Diastolic Thickness 1.2 cm 0.6 - 1.0 / 0.6 - 0.9 cm LVPW Diastolic Thickness 1.2 cm 0.6 - 1.0 / 0.6 - 0.9 cm LV Relative Wall Thickness 0.6 RV Internal Dim ED PLAX 3.3 cm LVOT Diameter 2.1 cm LA Systolic Diameter LX 3.4 cm 3.0 - 4.0 / 2.7 - 3.8 cm LV Ejection Fraction MOD 4C 50.0 % LV Cardiac Index MOD 4C 2610.8 cm/minm LV Ejection Fraction 4C AL 52.7 % LV Cardiac Index 4C AL 2883.2 cm/minm M-MODE Aortic Root Diameter MM 3.5 cm LA Systolic Diameter MM 3.9 cm LA Ao Ratio MM 1.1 AV Cusp Separation MM 2.0 cm DOPPLER AV Peak Velocity 159.0 cm/s AV Peak Gradient 10.1 mmHg AI Peak Velocity 391.0 cm/s AI Peak Gradient 61.2 mmHg AI Pressure Half Time 431.5 ms LVOT Peak Velocity 104.0 cm/s LVOT Peak Gradient 4.3 mmHg AV Area Cont Eq pk 2.3 cm MV Area PHT 2.5 cm Mitral E Point Velocity 96.3 cm/s Mitral A Point Velocity 128.0 cm/s Mitral E to A Ratio 0.8 LV E' Lateral Velocity 7.4 cm/s Mitral E to LV E' Lateral Ratio 13.0 LV E' Septal Velocity 7.0 cm/s Mitral E to LV E' Septal Ratio 13.7 TR Peak Velocity 290.0 cm/s TR Peak Gradient 33.6 mmHg Right Atrial Pressure 10.0 mmHg Pulmonary Artery Systolic Pressu 43.6 mmHg Right Ventricular Systolic Press 43.6 mmHg PV Peak Velocity 89.6 cm/s PV Peak Gradient 3.2 mmHg FINDINGS LEFT VENTRICLE Normal left ventricular size. Mild concentric left ventricular hypertrophy. Nonobstructive prominent basal hypertrophy is present consistent with sigmoid septum. The left ventricular systolic function is low normal with an estimated ejection fraction in the rang e of 50%. Doppler parameters are consistent with impaired left ventricular relaxtion (grade 1 diastolic dysfun ction). RIGHT VENTRICLE Normal right ventricular size and systolic function. LEFT ATRIUM The left atrial size is mildly dilated. RIGHT ATRIUM The right atrial size is normal. ATRIAL SEPTUM Normal atrial septal thickness. AORTA The aortic root and proximal ascending aorta are normal in size on limited imaging. MITRAL VALVE Structurally normal mitral valve. No mitral valve stenosis or regurgitation. AORTIC VALVE No aortic valve stenosis. Mild aortic valve regurgitation. TRICUSPID VALVE Structurally normal tricuspid valve. There is mild tricuspid valve regurgitation. There is estimated mild pulmonary hypertension present (44 mmHg). PULMONARY VALVE The pulmonary valve is not well visualized. Mild pulmonary valve regurgitation. VESSELS The inferior vena cava is normal in size. PERICARDIUM No pericardial effusion. Dave Swain DO (Electronically Signed) Final Date:05 August 2017 18:58
[2017-08-05] MEDS ORDERED: ATORVASTATIN 40 MG TAB PO SCH (21:00)
[2017-08-05 23:47] LABS: BILIRUBIN, URINE NEG (NEG); BLOOD, URINE NEG (NEG); GLUCOSE,URINE NEG (NEG); KETONE, URINE NEG (NEG); MUCUS URINE FEW /lpf (OCC); NITRITE,URINE NEG (NEG); PH, URINE 5.5 (5.0-8.5); URINE COLOR LIGHT-YELLOW (YELLW/STRAW); URINE LEUKOCYTE ESTERASE NEG (NEG)
[2017-08-06 00:45] VITALS: BP 145/68; PULSE 63; RESP 18; TEMP 97.7; O2SAT 94
[2017-08-06] MEDS: SODIUM CHLOR 0.9% 1000 ML INJ 1,000 ML IV SCH (01:21)
[2017-08-06 05:03] VITALS: BP 134/79; PULSE 63; RESP 18; TEMP 97.7; O2SAT 93
--- NOTE | 2017-08-06 07:02 | HHI.PR ---
Subjective Remarks sr Objective Vital Signs Date Time Temp Pulse Resp B/P (MAP) Pulse Ox O2 Delivery O2 Flow Rate FiO2 08/06/17 05:03 97.7 63 18 134/79 (97) 93 08/06/17 00:45 97.7 63 18 145/68 (93) 94 08/05/17 20:50 98.0 60 18 124/60 (81) 93 08/05/17 16:25 98.3 58 18 129/61 (83) 92 08/05/17 16:03 98.4 58 20 115/58 (77) 94 08/05/17 11:23 98.1 69 20 99/54 (69) 93 08/05/17 09:00 58 08/05/17 07:30 97 Nasal Cannula 2.00 08/05/17 07:21 98.4 53 18 113/56 (75) 96 I/O 08/05/17 08/05/17 08/05/17 08/06/17 08/06/17 08/06/17 07:00 15:00 23:00 07:00 15:00 23:00 Intake Total 240 ml 491 ml Balance 240 ml 491 ml Intake Oral 240 ml IV Total 491 ml # Voids 1 2 3 # Bowel Movements 1 Result Diagram: 08/04/17 1620 08/04/17 1620 Objective Remarks no more vertigo gait steady moves all well Assessment and Plan Assessment and Plan imp there is not acute cva just old scarring from left meningioma 2013 removal i reviewed films from 2014 TL and looks slightly better mra verts and vb neg ua neg echo nl she can dc on asa 81 and fu office fu holter if med team could could they call radiology and have them do an addendum on mri report indicating no cva just old scarring as noted above much appreciated to set record straight can dc 1pm when holter off Austin Salguero MD Aug 06, 2017 07:02
[2017-08-06] MEDS: SODIUM CHLORIDE 0.9% FLUSH 10 ML FLUSH IV FLUSH SCH (08:13)
[2017-08-06] MEDS: ASPIRIN EC 81 MG TABEC PO SCH (08:13)
[2017-08-06 08:14] VITALS: BP 167/67; PULSE 61; RESP 16; TEMP 98; O2SAT 91
[2017-08-06] MEDS ORDERED: ATOR40TA16 PO (08:22)
[2017-08-06] MEDS ORDERED: ECASA81 PO (08:22)
--- NOTE | 2017-08-06 08:23 | HHI.PR ---
Subjective Remarks Follow up for peripheral vestibulopathy. Patient is doing well. No acute concerns. Wants to go home today. Neurology saw patient today and does not think MRI finding is consistent with acute stroke. I called Radiology per neuro recommendations to modify the current MRI brain report. Objective Vitals Vital Signs Date Time Temp Pulse Resp B/P (MAP) Pulse Ox O2 Delivery O2 Flow Rate FiO2 08/06/17 08:14 98.0 61 16 167/67 (100) 91 08/06/17 05:03 97.7 63 18 134/79 (97) 93 08/06/17 00:45 97.7 63 18 145/68 (93) 94 08/05/17 20:50 98.0 60 18 124/60 (81) 93 08/05/17 16:25 98.3 58 18 129/61 (83) 92 08/05/17 16:03 98.4 58 20 115/58 (77) 94 08/05/17 11:23 98.1 69 20 99/54 (69) 93 08/05/17 09:00 58 I/O 08/05/17 08/05/17 08/05/17 08/06/17 08/06/17 08/06/17 07:00 15:00 23:00 07:00 15:00 23:00 Intake Total 240 ml 491 ml 574 ml Balance 240 ml 491 ml 574 ml Intake Oral 240 ml IV Total 491 ml 574 ml # Voids 1 2 3 # Bowel Movements 1 Result Diagram: 08/04/17 1620 08/04/17 1620 Imaging Last Impressions Neck Magnetic Resonance Angiography 08/05/17 0844 Signed Impressions: Service Date/Time: Saturday, August 05, 2017 12:08 - CONCLUSION: No evidence of carotid stenosis Juan Pablo Madrid MD Head CT [id number]/04/[id number] Signed Impressions: Service Date/Time: Friday, August 04, 2017 17:05 - CONCLUSION: 1. No evidence of acute intracranial pathology. No masses are identified. Austin Alcantara MD Chest X-Ray [id number] Signed Impressions: Service Date/Time: Friday, August 04, 2017 16:20 - CONCLUSION: 1. Linear parenchymal opacities in the left lower lung zone, presumably atelectasis/scarring. Jeronimo Martel MD Head Magnetic Resonance Angiography 08/04/17 0000 Signed Impressions: Service Date/Time: Friday, August 04, 2017 17:18 - CONCLUSION: Normal examination. Juan Pablo Madrid MD Brain MRI 08/04/17 0000 Signed Impressions: Service Date/Time: Friday, August 04, 2017 17:18 - CONCLUSION: 1. Findings suggest a focal subacute infarction involving the left cerebral cortex high along the left cerebral vertex. 2. SWI images demonstrate micro-hemorrhage within the left cortex at the level of the restricted diffusion. Jeremias Ochoa MD ADDENDUM: COMPARISON: MRI BRAIN W & W/O CONTRAST, January 18, 2013, 12:22. The case was discussed with the medical service. This patient has had a previous meningioma removed from the left posterior parietal cortex. As such, the signal identified on the diffusion restricted images likely represents an area of gliosis. The decreased signal in this area on the SWI images represents old postoperative change and old hemorrhage as well. The MRI dated 01/18/13 is now available for direct comparison. There is significant interval improvement in the appearance of this area when compared to the prior study. Joao Pineda MD Objective Remarks GENERAL: AOX3, NAD. SKIN: Warm and dry. HEAD: Normocephalic. EYES: No scleral icterus. No injection or drainage. NECK: Supple, trachea midline. No JVD or lymphadenopathy. CARDIOVASCULAR: Regular rate and rhythm without murmurs, gallops, or rubs. RESPIRATORY: Breath sounds equal bilaterally. No accessory muscle use. GASTROINTESTINAL: Abdomen soft, non-tender, nondistended. MUSCULOSKELETAL: No cyanosis, or edema. BACK: Nontender without obvious deformity. No CVA tenderness. Procedures None. A/P Problem List: (1) CVA (cerebral vascular accident) ICD Code: I63.9 - Cerebral infarction, unspecified Status: Acute (2) Vertigo ICD Code: R42 - Dizziness and giddiness Status: Acute Assessment and Plan Ms. Maurice is a 77-year-old female with a past medical history significant for osteoarthritis and osteoporosis presents the emergency department for evaluation of dizziness. She did not have any focal weakness, dysarthria. - Subacute left cerebral infarction - Left cortex micro-hemorrhage - Patient is currently on Aspirin. Neurology recommended discussing with radiology and make addendum to the MRI brain study - this was done after discussion with Dr. Santos Pineda (radiology) - Continue Aspirin - PT eval --> no PT needs. - Dyslipidemia - Will start patient on Lipitor 40mg QHS. - Vertigo - no further symptoms. Received one dose of Meclizine on 08/04/2017. Full code. SCDs. Telemetry. Discharge patient to home Condition on discharge: Improved Regular Diet as tolerated Ad Theresa activity Rx written: Aspirin 81mg Qday Lipitor 40mg Qday Follow-up with primary care physician one week. Neurology in two weeks. Macarena Lane DO Aug 06, 2017 8:23 am
[2017-08-06 08:25] VITALS: PULSE 57; PULSE 58
[2017-08-06 12:18] VITALS: BP 140/65; PULSE 59; RESP 16; TEMP 98; O2SAT 95
--- NOTE | 2017-08-07 15:56 | HM ---
Date Performed: 08/05/2017 Time Performed: 18:13:00 HOOKUP DATE: 08/05/17 06:13:00 PM Wed ANALYSIS START TIME: 08/05/2017 6:18:00 PM ANALYSIS END TIME: 08/06/2017 1:08:12 PM PATIENT AGE: 77 PATIENT HEIGHT PATIENT WEIGHT DRUG LIST PATIENT DIAGNOSIS: cva vertigo TEST NARRATIVE: The patient's average heart rate was 65 BPM. Heart rates greater than 120 B PM were noted < 1% of the time. Heart rates less than 50 BPM were noted < 1% of the time. No nayan ses exceeding 2.0 seconds were noted. 150 ventricular ectopics, which represented < 1% of the tot al beat count, were noted. The highest ventricular ectopic frequency occurred from 10:00 AM to 11:00 AM Salma. During this time 27 VE(s) occurred. Ventricular ectopics were observed as 148 isolated olamide t(s) and as 1 couplet(s). No runs were noted. 9 supraventricular ectopics, which represented < 1 % of the total beat count, were noted. The highest supraventricular ectopic frequency occurred from 08:00 PM to 09:00 PM Wed. During this time 4 SVE(s) occurred. Multiple episodes of ST depression (defined as -1.0 mm or more) were noted in channel 1. The maximum depression of -1.8 mm occurred a t 07:06:32 PM Wed. In channel 2, a single episode of ST depression (defined as -1.0 mm or more) occu rred at 10:22:47 AM [facility] with a maximum depression of -1.3 mm. Multiple episodes of [address] depression (de fined as -1.0 mm or more) were noted in channel 3. The maximum depression of -2.0 mm occurred at 08 :00:47 AM [facility]ma. NO DIARY ENTRIES TEST INTERPRETATION: Patient undergoes a holter monitor to see if there is any relationship of h er neurologic complaints with an underlying rhythm disturbance. She is in Sinus rhythm throughout the monitoring session, but only the expanded tracings are subject to interpretation. The heart rate varies from 50-122 bpm. And the heart rate of 122 bpm is a sinus tachycardia. Occasional PACs and PVCs are noted. One ventricular couplet is noted. No significant tachy arrhythmias or jorden arrhythmias are noted. No diary is provided, so it is unknown as to whether the patient is symptomati c. Conclusions: Relatively normal holter monitor with occasional PACs and PVCs. No significant tachy arrythmias or jorden arrhythmias. No complex ventricular ectopy. No diary provided so it is unknown as to whether the patient is symptomatic. Signed by : Dorota Crawford
== END 2017-08-06 14:10 | disposition home or self-care (01) | DRG 149 ==
LOC: NEPE 15:58 → NEDA 18:42 → NEPFCDU 20:08 → N05A 08-05 16:21
PROVIDERS: ADMIT Hospitalist; ATTEND Hospitalist
DX: H81.20 Vestibular neuronitis, unspecified ear (principal); E78.5 Hyperlipidemia, unspecified; M19.90 Unspecified osteoarthritis, unspecified site; M81.0 Age-related osteoporosis without current pathological fracture; Z86.011 Personal history of benign neoplasm of the brain; Z86.73 Personal history of transient ischemic attack (TIA), and cerebral infarction without residual deficits; Z87.891 Personal history of nicotine dependence
CPT/HCPCS: 70450; 70544; 70548; 70553; 71045; 80053; 80061; 81001; 82550; 83036; 83735; 84484; 85025; 85610; 85730; 93005; 93225; 93226; 93306; 96374; A9579; J2405; J7030